=== PATIENT | male | born 1940 | race Caucasian/White ===

== ENCOUNTER 2016-07-26 15:29 | Emergency (ER) | payer MEDICARE, OTHER ==
[2016-07-26 19:38] LABS: SPECIFIC GRAVITY 1.025 (1.001-1.030); URINE BILIRUBIN 1+ (NEGATIVE); URINE BLOOD NEGATIVE (NEGATIVE); URINE GLUCOSE (UA) NEGATIVE (NEGATIVE); URINE LEUKOCYTE ESTERASE TRACE (NEGATIVE); URINE NITRITE NEGATIVE (NEGATIVE); URINE PROTEIN TRACE (NEGATIVE); URINE UROBILINOGEN NORMAL (0-1 mg/dl)
[2016-07-26 19:39] LABS: URINE APPEARANCE CLEAR; URINE COLOR AMBER
--- NOTE | 2016-07-26 19:41 | RAD ---
Exam: Single view abdomen COMPARISON: 02/01/[address] 05/12/2015 INDICATION: Abdominal pain. Findings: 2 supine AP views of the abdomen were obtained and demonstrate a normal bowel gas pattern without evidence of obstruction. No obvious organomegaly or mass effect. Calcification in the pelvis is noted reflecting a phlebolith. Mild degenerative changes are noted in the spine. Calcification within the right upper quadrant is noted and shown to be within the liver on prior CT. IMPRESSION: No evidence of bowel obstruction
[2016-07-26 19:50] LABS: URINE RBC 0 /hpf
[2016-07-26 19:51] LABS: URINE BACTERIA 1+
== END 2016-07-26 19:49 | disposition home or self-care (01) ==
LOC: ED 15:29
DX: R10.9 Unspecified abdominal pain (principal); I50.9 Heart failure, unspecified; J43.9 Emphysema, unspecified; R39.198 Other difficulties with micturition; Z87.891 Personal history of nicotine dependence

== ENCOUNTER 2016-09-15 08:33 | Emergency (ER) | payer MEDICARE, OTHER | END 2016-09-15 10:25 | disposition home or self-care (01) | LOC: ED 08:33 | DX: R13.10 Dysphagia, unspecified (principal); E78.5 Hyperlipidemia, unspecified; E66.9 Obesity, unspecified; I50.9 Heart failure, unspecified; I25.2 Old myocardial infarction; J45.909 Unspecified asthma, uncomplicated; J44.9 Chronic obstructive pulmonary disease, unspecified; I48.91 Unspecified atrial fibrillation; I25.10 Atherosclerotic heart disease of native coronary artery without angina pectoris; G47.30 Sleep apnea, unspecified; Z87.891 Personal history of nicotine dependence; Z86.711 Personal history of pulmonary embolism; F03.90 Unspecified dementia, unspecified severity, without behavioral disturbance, psychotic disturbance, mood disturbance, and anxiety; Z79.899 Other long term (current) drug therapy; Z79.01 Long term (current) use of anticoagulants; Z79.51 Long term (current) use of inhaled steroids; Z51.81 Encounter for therapeutic drug level monitoring ==

== ENCOUNTER 2016-09-19 15:12 | Emergency (ER) | payer MEDICARE, OTHER ==
[2016-09-19 16:17] LABS: ABSOLUTE NEUTROPHIL COUNT 2.9 K/mm3 (1.8-7.7); BASO # 0.1 K/mm3 (0.0-0.2); BASO % 1.1 % (0.2-1.0); EOS # 0.3 (0.0-0.5); EOS % 4.9 % (0.9-2.9); HEMATOCRIT 43.7 % (32.0-52.0); HEMOGLOBIN 14.1 gm/l (14.0-18.0); IMM NEUT% 0.2 % (0-1); LYMPH # 1.9 (1.0-4.8); LYMPH % 34.9 % (15-45); MEAN CELL VOLUME 85.9 fl (80.0-94.0); MEAN CORPUSCULAR HEMOGLOBIN 27.7 pg (27.0-31.0); MEAN CORPUSCULAR HGB CONC 32.3 g/dl (33.0-37.0); MONO # 0.4 (0.0-0.8); MONO % 6.3 % (4-12); NEUT % 52.6 % (43-75); PLATELET COUNT 291 K/mm3 (130-400); RED CELL DISTRIBUTION WIDTH 14.8 % (11.5-14.5)
[2016-09-19 16:31] LABS: TROPONIN I < 0.01 ng/ml (0.0-0.06)
--- NOTE | 2016-09-19 16:33 | RAD ---
CHEST - 2 VIEWS COMPARISON: CT chest with contrast, 05/12/2015 HISTORY: Shortness of breath, diaphoresis, and weakness FINDINGS: Views: Frontal and lateral chest Lungs: Normal Heart and vessels: Normal size. Prosthetic aortic valve. Calcification of the aortic arch. Trachea and bronchi: Normal Mediastinum and javier: Normal Costophrenic sulci: Normal Chest wall and bones: Sternotomy wires. Upper abdomen: Normal. IMPRESSION: No acute finding. There is a prosthetic aortic valve.
[2016-09-19 16:34] LABS: CKMB ISOENZYME 1.4 ng/ml (0.6-6.3)
[2016-09-19 16:41] LABS: THYROID STIMULATING HORMONE 3.78 uIU/ml (0.34-5.60)
== END 2016-09-19 17:49 | disposition home or self-care (01) ==
LOC: ED 15:12
DX: R53.83 Other fatigue (principal); R61 Generalized hyperhidrosis; I48.91 Unspecified atrial fibrillation; I50.9 Heart failure, unspecified; I25.10 Atherosclerotic heart disease of native coronary artery without angina pectoris; I25.2 Old myocardial infarction; J44.9 Chronic obstructive pulmonary disease, unspecified; J45.909 Unspecified asthma, uncomplicated; Z79.01 Long term (current) use of anticoagulants; Z85.038 Personal history of other malignant neoplasm of large intestine
CPT/HCPCS: 83605; 85025; 82553; 84443; 84484; 71020; 99284 ×2; 85610; 36416; 93005; G0463